=== PATIENT | female | born 1985 | race Caucasian/White ===

== ENCOUNTER 2019-09-08 18:10 | Emergency (ER) | payer OTHER, MEDICAID ==
[2019-09-08] MEDS ORDERED: LORazepam 1 MG TABLET PO STA (18:27)
[2019-09-08] MEDS ORDERED: IBUPROFEN 600 MG TABLET PO STA (18:27)
[2019-09-08] MEDS ORDERED: ACETAMINOPHEN 325 MG TABLET PO STA (18:27)
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
[2019-09-08 20:51] VITALS: BP 115/71
== END 2019-09-08 20:50 | disposition home or self-care (01) ==
LOC: ED 18:10
DX: S29.012A Strain of muscle and tendon of back wall of thorax, initial encounter (principal); R07.81 Pleurodynia; V43.62XA Car passenger injured in collision with other type car in traffic accident, initial encounter; W22.12XA Striking against or struck by front passenger side automobile airbag, initial encounter; Y92.410 Unspecified street and highway as the place of occurrence of the external cause; F41.9 Anxiety disorder, unspecified
CPT/HCPCS: 71046; 99283; 99284; A9270; J8499

== ENCOUNTER → 2019-09-08 | Outpatient (CLI) | payer OTHER, MEDICAID | END | disposition critical access hospital (66) | LOC: EMS 17:51 | PROVIDERS: ATTEND Surgery | DX: Z04.1 Encounter for examination and observation following transport accident (principal) | CPT/HCPCS: A0425; A0429 ==